=== PATIENT | female | born 1950 | race African-American/Black ===

== ENCOUNTER 2019-10-18 14:06 | Inpatient (IN) | payer MEDICARE, MEDICAID ==
[~2019-10-18] VITALS: Ht 157.5 cm; Wt 89.8 kg
[2019-10-18 15:44] LABS: HEMATOCRIT. 49.6 % (36.0-48.0); HEMOGLOBIN. 16.4 g/dL (12.0-16.0); MEAN CORPUSCULAR HEMOGLOBIN 29.9 pg (28.0-32.0); MEAN CORPUSCULAR VOLUME 90.4 fL (81.0-99.0); MEAN PLATELET VOLUME 8.8 fl (7.4-10.4); PLATELET 205 x1000/uL (130-400); RED BLOOD CELL COUNT 5.49 mill/uL (4.2-5.4); RED CELL DISTRIBUTION WIDTH 13.5 % (11.6-14.6)
[2019-10-18 15:48] LABS: CHLORIDE 110 mEq/L (98-107)
[2019-10-18 15:53] LABS: ETHANOL BLOOD < 10 mg/dL
[2019-10-18 15:57] LABS: CREATINE KINASE 604 IU/L (26-192)
[2019-10-18] MEDS ORDERED: PIPERACILLIN/TAZ 3.375G PREMIX 50 ML IV ONE (16:30)
[2019-10-18] MEDS ORDERED: VANCOMYCIN 1 G PREMIX 200 ML IV ONE (16:30)
[2019-10-18] MEDS ORDERED: SODIUM CHLORIDE 0.9% 1000ML BAG (SEPSIS BOLUS) IV ONE (16:30)
[2019-10-18] MEDS ORDERED: ASPIRIN 81MG TABLET PO ONE (16:30)
[2019-10-18 17:29] LABS: PLATELET ESTIMATE NORMAL
[2019-10-18] MEDS ORDERED: ACETAMINOPHEN 325MG TABLET PO PRN (18:00)
[2019-10-18] MEDS ORDERED: IPRATROPIUM/ALBUTEROL 0.5-3(2.5)MG/3ML NEB NEB PRN (18:00)
[2019-10-18] MEDS ORDERED: ONDANSETRON HCL 4MG/2ML INJ IV PRN (18:00)
[2019-10-18] MEDS ORDERED: CLONIDINE 0.1MG TABLET PO PRN (18:00)
[2019-10-18] MEDS ORDERED: TRAMADOL 50MG TABLET PO PRN (18:00)
[2019-10-18] MEDS ORDERED: GUAIFENESIN 200MG/10ML SUGAR FREE UDC PO PRN (18:00)
[2019-10-18] MEDS ORDERED: NITROGLYCERIN 0.4MG TABLET SL SL PRN (18:00)
[2019-10-18] MEDS ORDERED: MAGNESIUM/ALUMINUM HYDROXIDE/SIMETHICONE 30ML UDC PO PRN (18:00)
[2019-10-18] MEDS ORDERED: ZOLPIDEM TARTRATE 5MG TABLET PO PRN (18:00)
[2019-10-18] MEDS ORDERED: DOCUSATE SODIUM 100MG CAPSULE PO PRN (18:00)
[2019-10-18] MEDS ORDERED: AZITHROMYCIN 500 MG in DEXT 5% WATER 250 ML IV SCH (18:00)
[2019-10-18 19:57] LABS: T4 FREE 1.19 ng/dL (0.76-1.46)
[2019-10-18 20:06] LABS: FOLIC ACID (FOLATE) SERUM 9.6 ng/mL (>5.38)
[2019-10-18 23:59] VITALS: BP 166/103
[2019-10-19] VITALS (7 sets, daily range): BP systolic 112–166; BP diastolic 65–103
[2019-10-19] MEDS ORDERED: LISI-604 PO (00:32)
[2019-10-19 01:18] LABS: CREATINE KINASE MB FRACTION 3.2 ng/mL (0.5-3.6)
[2019-10-19] MEDS: DILTIAZEM HCL 60MG TABLET PO SCH ×5 (01:21→23:39)
[2019-10-19] MEDS: ASCORBIC ACID 500 MG TABLET PO SCH ×3 (01:21→21:19)
[2019-10-19] MEDS: CEFTRIAXONE 1 G PREMIX 50 ML IV SCH (01:21)
[2019-10-19] MEDS: AZITHROMYCIN 500 MG in DEXT 5% WATER 250 ML IV SCH (03:04)
[2019-10-19 06:43] LABS: CREATINE KINASE MB FRACTION 2.3 ng/mL (0.5-3.6)
[2019-10-19] MEDS ORDERED: CEFTRIAXONE 1 G PREMIX 50 ML IV SCH (09:00)
[2019-10-19] MEDS: ZINC SULFATE 220 MG ( 50 ) CAPSULE PO SCH (09:34)
[2019-10-19] MEDS: GUAIFENESIN/DM 600MG/30MG ER TAB 12HR PO SCH ×2 (09:34→21:18)
[2019-10-19] MEDS: FAMOTIDINE 40MG TABLET PO SCH ×2 (09:34→21:19)
[2019-10-19] MEDS: ASPIRIN 325MG EC TABLET PO SCH (09:35)
[2019-10-19] MEDS: ENOXAPARIN 40MG/0.4ML SYR SUBCUT SCH (11:42)
[2019-10-20 04:00] VITALS: BP 135/70
[2019-10-20] MEDS: DILTIAZEM HCL 60MG TABLET PO SCH ×3 (05:07→17:18)
[2019-10-20] MEDS: AZITHROMYCIN 500 MG in DEXT 5% WATER 250 ML IV SCH (08:54)
[2019-10-20] MEDS: ASPIRIN 325MG EC TABLET PO SCH (08:55)
[2019-10-20] MEDS: ZINC SULFATE 220 MG ( 50 ) CAPSULE PO SCH (08:55)
[2019-10-20] MEDS: FAMOTIDINE 40MG TABLET PO SCH ×2 (08:55→21:46)
[2019-10-20] MEDS: ASCORBIC ACID 500 MG TABLET PO SCH ×2 (08:55→21:46)
[2019-10-20] MEDS: ENOXAPARIN 40MG/0.4ML SYR SUBCUT SCH (08:56)
[2019-10-20] MEDS: GUAIFENESIN/DM 600MG/30MG ER TAB 12HR PO SCH (09:00)
[2019-10-20] MEDS: CEFTRIAXONE 1 G PREMIX 50 ML IV SCH (09:07)
[2019-10-20] MEDS: CLOPIDOGREL 75MG TABLET PO SCH (13:50)
[2019-10-20] MEDS ORDERED: IOHEXOL-350 100 ML BOTTLE ONE (18:03)
[2019-10-20] MEDS ORDERED: ATORVASTATIN CALCIUM 10MG TABLET PO SCH (21:00)
[2019-10-21] VITALS: BP 140/85
[2019-10-21] MEDS: GUAIFENESIN/DM 600MG/30MG ER TAB 12HR PO SCH ×2 (00:11→09:12)
[2019-10-21] MEDS: DILTIAZEM HCL 60MG TABLET PO SCH ×3 (00:17→12:52)
[2019-10-21 08:00] VITALS: BP 116/66
[2019-10-21] MEDS: AZITHROMYCIN 500 MG in DEXT 5% WATER 250 ML IV SCH (08:48)
[2019-10-21] MEDS: CLOPIDOGREL 75MG TABLET PO SCH (09:13)
[2019-10-21] MEDS: ZINC SULFATE 220 MG ( 50 ) CAPSULE PO SCH (09:13)
[2019-10-21] MEDS: FAMOTIDINE 40MG TABLET PO SCH (09:13)
[2019-10-21] MEDS: ASCORBIC ACID 500 MG TABLET PO SCH (09:14)
[2019-10-21] MEDS: ENOXAPARIN 40MG/0.4ML SYR SUBCUT SCH (09:33)
[2019-10-21] MEDS: CEFTRIAXONE 1 G PREMIX 50 ML IV SCH (09:33)
[2019-10-21 12:00] VITALS: BP 156/95
[2019-10-21 12:19] VITALS: BP 116/66
[2019-10-21] MEDS ORDERED: CYANOCOBALAMIN 1000MCG/ML VIAL IM SCH (14:00)
[2019-11-03] MEDS ORDERED: CYANOCOBALAMIN 1000MCG/ML VIAL IM SCH (09:00)
== END 2019-10-21 16:59 | DRG 871 ==
LOC: ER 14:06 → 7WST 17:16 → EDBEDREQSVC 17:24 → EDBEDREQ 17:24 → SUPCPDRO 17:51 → ENRESERV 21:16
PROVIDERS: ADMIT Internal Medicine; ATTEND Internal Medicine
DX: A41.9 Sepsis, unspecified organism (principal); J69.0 Pneumonitis due to inhalation of food and vomit; J96.00 Acute respiratory failure, unspecified whether with hypoxia or hypercapnia; G92 Toxic encephalopathy; I63.81 Other cerebral infarction due to occlusion or stenosis of small artery; G82.50 Quadriplegia, unspecified; M62.82 Rhabdomyolysis; R47.01 Aphasia; I10 Essential (primary) hypertension; E11.9 Type 2 diabetes mellitus without complications; E53.8 Deficiency of other specified B group vitamins; E61.1 Iron deficiency; E78.00 Pure hypercholesterolemia, unspecified; R13.10 Dysphagia, unspecified; Z60.2 Problems related to living alone; R26.89 Other abnormalities of gait and mobility; I65.1 Occlusion and stenosis of basilar artery; Z82.49 Family history of ischemic heart disease and other diseases of the circulatory system; Z86.79 Personal history of other diseases of the circulatory system
CPT/HCPCS: 36415; 70496; 70544; 70551; 71045; 80053; 80061; 80320; 82550; 82553; 82607; 82746; 83036; 83540; 83550; 83605; 84439; 84443; 84484; 85025; 92523; 92610; 93005; 93306; 93880; 93970; 94640; 96361; 96365; 96372; 97116; 97162; 97166; 97530; 97535; 99291; J0456; J0696; J1650; J2543; J3370; J7030; J7060; Q9967; G0480

== ENCOUNTER 2019-10-21 16:55 | Inpatient (IN) | payer MEDICARE, MEDICAID ==
[~2019-10-21] VITALS: Ht 144.8 cm; Wt 92.1 kg
[2019-10-21 16:55] VITALS: BP 121/70
[~2019-10-21 16:55] MED LIST: LISI-604 PO
[2019-10-21] MEDS ORDERED: MAGNESIUM/ALUMINUM HYDROXIDE/SIMETHICONE 30ML UDC PO PRN (18:15)
[2019-10-21] MEDS ORDERED: NITROGLYCERIN 0.4MG TABLET SL SL PRN (18:15)
[2019-10-21] MEDS ORDERED: GUAIFENESIN 200MG/10ML SUGAR FREE UDC PO PRN (18:15)
[2019-10-21] MEDS ORDERED: ACETAMINOPHEN 325MG TABLET PO PRN (18:15)
[2019-10-21] MEDS ORDERED: TRAMADOL 50MG TABLET PO PRN (18:15)
[2019-10-21] MEDS ORDERED: IPRATROPIUM/ALBUTEROL 0.5-3(2.5)MG/3ML NEB HHN PRN (18:15)
[2019-10-21 20:00] VITALS: BP_SYST 174; BP_SYST 176; BP_DIAS 86; BP_DIAS 99
[2019-10-21] MEDS: CLONIDINE 0.1MG TABLET PO PRN (20:24)
[2019-10-21] MEDS: GUAIFENESIN/DM 600MG/30MG ER TAB 12HR PO SCH ×2 (21:00→21:28)
[2019-10-21] MEDS: ASCORBIC ACID 500 MG TABLET PO SCH (21:28)
[2019-10-21] MEDS: ATORVASTATIN CALCIUM 10MG TABLET PO SCH (21:28)
[2019-10-21] MEDS: FAMOTIDINE 40MG TABLET PO SCH (21:28)
[2019-10-22] MEDS: DILTIAZEM HCL 60MG TABLET PO SCH ×5 (00:59→23:38)
[2019-10-22 07:54] LABS: BASOPHILS % 0.7 % (0.0-2.0); EOSINOPHILS % 4.6 % (0.0-5.0); HEMATOCRIT. 47.6 % (36.0-48.0); HEMOGLOBIN. 15.4 g/dL (12.0-16.0); LYMPHOCYTES % 38.4 % (20.0-50.0); MEAN CORPUSCULAR HEMOGLOBIN 29.6 pg (28.0-32.0); MEAN CORPUSCULAR VOLUME 91.5 fL (81.0-99.0); MEAN PLATELET VOLUME 9.4 fl (7.4-10.4); NEUTROPHILS % 48.3 % (40.0-76.0); PLATELET 219 x1000/uL (130-400); RED BLOOD CELL COUNT 5.21 mill/uL (4.2-5.4); RED CELL DISTRIBUTION WIDTH 13.8 % (11.6-14.6)
[2019-10-22 07:56] LABS: CHLORIDE 114 mEq/L (98-107)
[2019-10-22] MEDS ORDERED: AZITHROMYCIN 500 MG in DEXT 5% WATER 250 ML IV SCH ×2 (08:00→21:00)
[2019-10-22 08:06] VITALS: BP 132/76
[2019-10-22] MEDS: ASCORBIC ACID 500 MG TABLET PO SCH ×2 (08:28→21:07)
[2019-10-22] MEDS: DOCUSATE SODIUM 100MG CAPSULE PO SCH ×2 (08:28→17:11)
[2019-10-22] MEDS: CLOPIDOGREL 75MG TABLET PO SCH (08:28)
[2019-10-22] MEDS: GUAIFENESIN/DM 600MG/30MG ER TAB 12HR PO SCH ×2 (08:28→21:00)
[2019-10-22] MEDS: ZINC SULFATE 220 MG ( 50 ) CAPSULE PO SCH (08:28)
[2019-10-22] MEDS: ENOXAPARIN 40MG/0.4ML SYR SUBCUT SCH (08:29)
[2019-10-22] MEDS: CYANOCOBALAMIN 1000MCG/ML VIAL SUBCUT SCH (08:29)
[2019-10-22] MEDS: FAMOTIDINE 40MG TABLET PO SCH ×2 (08:29→21:07)
[2019-10-22] MEDS ORDERED: CEFTRIAXONE 1 G PREMIX 50 ML IV SCH ×2 (09:00→22:00)
[2019-10-22] MEDS ORDERED: CLOPIDOGREL 75MG TABLET PO SCH (09:00)
[2019-10-22] MEDS ORDERED: POTASSIUM CHLORIDE 20MEQ TABLET SR PO NR (10:15)
[2019-10-22 20:00] VITALS: BP 158/98
[2019-10-22] MEDS: ATORVASTATIN CALCIUM 10MG TABLET PO SCH (21:07)
[2019-10-22 21:31] LABS: CLARITY URINE CLEAR (CLEAR); COLOR URINE YELLOW (YELLOW); KETONES URINE NEGATIVE (NEGATIVE); LEUKOCYTE ESTERASE URINE TRACE (NEGATIVE); NITRITE URINE NEGATIVE (NEGATIVE); OCCULT BLOOD URINE NEGATIVE (NEGATIVE); PROTEIN URINE NEGATIVE (NEGATIVE); SPECIFIC GRAVITY URINE 1.018 (1.005-1.030); UROBILINOGEN URINE 0.2 E.U./dL (0.2-1.0)
[2019-10-23] MEDS: ZOLPIDEM TARTRATE 5MG TABLET PO PRN ×2 (00:46→21:02)
[2019-10-23] MEDS: DILTIAZEM HCL 60MG TABLET PO SCH ×4 (06:02→21:02)
[2019-10-23 07:49] VITALS: BP 128/85
[2019-10-23] MEDS: GUAIFENESIN/DM 600MG/30MG ER TAB 12HR PO SCH ×2 (08:46→21:01)
[2019-10-23] MEDS: ASCORBIC ACID 500 MG TABLET PO SCH ×2 (08:46→21:02)
[2019-10-23] MEDS: DOCUSATE SODIUM 100MG CAPSULE PO SCH ×2 (08:46→17:00)
[2019-10-23] MEDS: ZINC SULFATE 220 MG ( 50 ) CAPSULE PO SCH (08:46)
[2019-10-23] MEDS: FAMOTIDINE 40MG TABLET PO SCH ×2 (08:46→21:02)
[2019-10-23] MEDS: CYANOCOBALAMIN 1000MCG/ML VIAL SUBCUT SCH (08:46)
[2019-10-23] MEDS: CLOPIDOGREL 75MG TABLET PO SCH (08:46)
[2019-10-23] MEDS: ENOXAPARIN 40MG/0.4ML SYR SUBCUT SCH (08:47)
[2019-10-23 10:30] LABS: BASOPHILS % 0.7 % (0.0-2.0); EOSINOPHILS % 4.5 % (0.0-5.0); HEMOGLOBIN. 14.9 g/dL (12.0-16.0); LYMPHOCYTES % 25.4 % (20.0-50.0); MEAN CORPUSCULAR HEMOGLOBIN 29.6 pg (28.0-32.0); MEAN CORPUSCULAR VOLUME 91.3 fL (81.0-99.0); MONOCYTES % 8.1 % (2.0-8.0); NEUTROPHILS % 61.3 % (40.0-76.0); PLATELET 225 x1000/uL (130-400); RED BLOOD CELL COUNT 5.03 mill/uL (4.2-5.4); RED CELL DISTRIBUTION WIDTH 13.5 % (11.6-14.6)
[2019-10-23 10:40] LABS: CHLORIDE 113 mEq/L (98-107)
[2019-10-23 10:50] LABS: CREATINE KINASE 40 IU/L (26-192)
[2019-10-23] MEDS: LACTULOSE 20G/30ML UDC PO SCH ×2 (13:53→21:24)
[2019-10-23] MEDS: AZITHROMYCIN 500 MG TABLET PO SCH (17:22)
[2019-10-23 20:00] VITALS: BP 167/107
[2019-10-23] MEDS: ATORVASTATIN CALCIUM 10MG TABLET PO SCH (21:01)
[2019-10-24] MEDS: LACTULOSE 20G/30ML UDC PO SCH ×2 (06:04→13:02)
[2019-10-24] MEDS: DILTIAZEM HCL 60MG TABLET PO SCH ×3 (06:05→17:00)
[2019-10-24 08:00] VITALS: BP 132/81
[2019-10-24] MEDS: ASCORBIC ACID 500 MG TABLET PO SCH ×2 (08:36→21:35)
[2019-10-24] MEDS: GUAIFENESIN/DM 600MG/30MG ER TAB 12HR PO SCH ×2 (08:36→21:34)
[2019-10-24] MEDS: CLOPIDOGREL 75MG TABLET PO SCH (08:36)
[2019-10-24] MEDS: ZINC SULFATE 220 MG ( 50 ) CAPSULE PO SCH (08:36)
[2019-10-24] MEDS: DOCUSATE SODIUM 100MG CAPSULE PO SCH ×2 (08:36→16:42)
[2019-10-24] MEDS: FAMOTIDINE 40MG TABLET PO SCH ×2 (08:36→21:35)
[2019-10-24] MEDS: CYANOCOBALAMIN 1000MCG/ML VIAL SUBCUT SCH (08:36)
[2019-10-24] MEDS: ENOXAPARIN 40MG/0.4ML SYR SUBCUT SCH (08:38)
[2019-10-24 10:59] VITALS: BP 135/82
[2019-10-24 16:38] VITALS: BP 140/63
[2019-10-24] MEDS: AZITHROMYCIN 500 MG TABLET PO SCH (17:00)
[2019-10-24 20:00] VITALS: BP 137/87
[2019-10-24] MEDS: ATORVASTATIN CALCIUM 10MG TABLET PO SCH (21:35)
[2019-10-25] MEDS: DILTIAZEM HCL 60MG TABLET PO SCH ×4 (00:02→17:00)
[2019-10-25 08:00] VITALS: BP 140/82
[2019-10-25] MEDS: FAMOTIDINE 40MG TABLET PO SCH ×2 (08:45→21:34)
[2019-10-25] MEDS: CLOPIDOGREL 75MG TABLET PO SCH (08:46)
[2019-10-25] MEDS: GUAIFENESIN/DM 600MG/30MG ER TAB 12HR PO SCH ×2 (08:46→21:34)
[2019-10-25] MEDS: ASCORBIC ACID 500 MG TABLET PO SCH ×2 (08:46→21:34)
[2019-10-25] MEDS: ZINC SULFATE 220 MG ( 50 ) CAPSULE PO SCH (08:46)
[2019-10-25] MEDS: ENOXAPARIN 40MG/0.4ML SYR SUBCUT SCH (08:47)
[2019-10-25] MEDS: CYANOCOBALAMIN 1000MCG/ML VIAL SUBCUT SCH (08:47)
[2019-10-25] MEDS: DOCUSATE SODIUM 100MG CAPSULE PO SCH ×2 (08:52→17:01)
[2019-10-25 13:36] VITALS: BP 147/82
[2019-10-25] MEDS: AZITHROMYCIN 500 MG TABLET PO SCH (17:00)
[2019-10-25 20:00] VITALS: BP 137/78
[2019-10-25] MEDS: ATORVASTATIN CALCIUM 10MG TABLET PO SCH (21:34)
[2019-10-25] MEDS: ZOLPIDEM TARTRATE 5MG TABLET PO PRN (21:34)
[2019-10-26] MEDS: DILTIAZEM HCL 60MG TABLET PO SCH ×5 (00:26→17:14)
[2019-10-26 06:32] LABS: BASOPHILS % 0.4 % (0.0-2.0); EOSINOPHILS % 4.3 % (0.0-5.0); HEMATOCRIT. 47.2 % (36.0-48.0); HEMOGLOBIN. 15.8 g/dL (12.0-16.0); LYMPHOCYTES % 35.8 % (20.0-50.0); MEAN CORPUSCULAR HEMOGLOBIN 30.1 pg (28.0-32.0); MEAN CORPUSCULAR VOLUME 90.1 fL (81.0-99.0); MEAN PLATELET VOLUME 8.8 fl (7.4-10.4); MONOCYTES % 10.1 % (2.0-8.0); NEUTROPHILS % 49.4 % (40.0-76.0); PLATELET 267 x1000/uL (130-400); RED BLOOD CELL COUNT 5.23 mill/uL (4.2-5.4); RED CELL DISTRIBUTION WIDTH 13.2 % (11.6-14.6)
[2019-10-26 06:48] LABS: CHLORIDE 115 mEq/L (98-107)
[2019-10-26 08:01] VITALS: BP 134/83
[2019-10-26] MEDS: ENOXAPARIN 40MG/0.4ML SYR SUBCUT SCH (08:23)
[2019-10-26] MEDS: GUAIFENESIN/DM 600MG/30MG ER TAB 12HR PO SCH ×2 (08:24→21:14)
[2019-10-26] MEDS: CLOPIDOGREL 75MG TABLET PO SCH (08:24)
[2019-10-26] MEDS: ASCORBIC ACID 500 MG TABLET PO SCH ×2 (08:24→21:14)
[2019-10-26] MEDS: ZINC SULFATE 220 MG ( 50 ) CAPSULE PO SCH (08:24)
[2019-10-26] MEDS: DOCUSATE SODIUM 100MG CAPSULE PO SCH ×2 (08:24→17:13)
[2019-10-26] MEDS: CYANOCOBALAMIN 1000MCG/ML VIAL SUBCUT SCH (08:24)
[2019-10-26 08:30] VITALS: BP 134/83
[2019-10-26] MEDS: FAMOTIDINE 20MG TABLET PO SCH ×2 (08:51→21:14)
[2019-10-26 11:32] VITALS: BP 101/74
[2019-10-26 16:58] VITALS: BP 141/87
[2019-10-26] MEDS: AZITHROMYCIN 500 MG TABLET PO SCH (17:13)
[2019-10-26] MEDS ORDERED: IPRATROPIUM/ALBUTEROL 0.5-3(2.5)MG/3ML NEB HHN PRN (18:30)
[2019-10-26 20:00] VITALS: BP 142/84
[2019-10-26] MEDS: ZOLPIDEM TARTRATE 5MG TABLET PO PRN (21:14)
[2019-10-26] MEDS: ATORVASTATIN CALCIUM 10MG TABLET PO SCH (21:14)
[2019-10-26] MEDS: ENOXAPARIN 30MG/0.3ML SYR SUBCUT SCH (21:14)
[2019-10-27] MEDS: IPRATROPIUM/ALBUTEROL 0.5-3(2.5)MG/3ML NEB HHN SCH ×4 (02:09→20:08)
[2019-10-27 06:11] LABS: 25-HYDROXY VITAMIN D3 5.1 ng/mL (.)
[2019-10-27] MEDS: DILTIAZEM HCL 60MG TABLET PO SCH ×5 (06:22→23:36)
[2019-10-27 07:42] LABS: CHLORIDE 115 mEq/L (98-107)
[2019-10-27 08:00] VITALS: BP 120/76
[2019-10-27] MEDS: ENOXAPARIN 30MG/0.3ML SYR SUBCUT SCH ×3 (09:06→21:00)
[2019-10-27] MEDS: ASCORBIC ACID 500 MG TABLET PO SCH ×3 (09:06→21:00)
[2019-10-27] MEDS: DOCUSATE SODIUM 100MG CAPSULE PO SCH ×2 (09:06→16:40)
[2019-10-27] MEDS: CYANOCOBALAMIN 1000MCG/ML VIAL SUBCUT SCH (09:06)
[2019-10-27] MEDS: GUAIFENESIN/DM 600MG/30MG ER TAB 12HR PO SCH ×3 (09:06→21:00)
[2019-10-27] MEDS: ZINC SULFATE 220 MG ( 50 ) CAPSULE PO SCH (09:10)
[2019-10-27] MEDS: CLOPIDOGREL 75MG TABLET PO SCH (09:10)
[2019-10-27] MEDS: FAMOTIDINE 20MG TABLET PO SCH ×3 (09:25→21:00)
[2019-10-27] MEDS: CLONIDINE 0.1MG TABLET PO PRN (13:05)
[2019-10-27] MEDS: AZITHROMYCIN 500 MG TABLET PO SCH (16:39)
[2019-10-27] MEDS ORDERED: ERGOCALCIFEROL 50000UNITS CAPSULE PO SCH (17:00)
[2019-10-27] MEDS ORDERED: TRAMADOL 50MG TABLET PO PRN (19:45)
[2019-10-27 20:00] VITALS: BP 120/70
[2019-10-27] MEDS: BUDESONIDE 0.5MG/2ML NEB HHN SCH (20:08)
[2019-10-27] MEDS: ATORVASTATIN CALCIUM 10MG TABLET PO SCH ×2 (20:21→21:00)
[2019-10-27] MEDS: LACTULOSE 20G/30ML UDC PO SCH (21:39)
[2019-10-27] MEDS: ZOLPIDEM TARTRATE 5MG TABLET PO PRN (23:36)
[2019-10-28] MEDS: DILTIAZEM HCL 60MG TABLET PO SCH ×4 (06:08→23:47)
[2019-10-28] MEDS: LACTULOSE 20G/30ML UDC PO SCH ×3 (06:08→20:42)
[2019-10-28 07:15] VITALS: BP 128/68
[2019-10-28] MEDS: BUDESONIDE 0.5MG/2ML NEB HHN SCH ×2 (07:22→21:15)
[2019-10-28] MEDS: IPRATROPIUM/ALBUTEROL 0.5-3(2.5)MG/3ML NEB HHN SCH ×4 (07:22→21:15)
[2019-10-28] MEDS: DOCUSATE SODIUM 100MG CAPSULE PO SCH ×2 (09:00→16:34)
[2019-10-28] MEDS: GUAIFENESIN/DM 600MG/30MG ER TAB 12HR PO SCH ×2 (09:04→20:41)
[2019-10-28] MEDS: ZINC SULFATE 220 MG ( 50 ) CAPSULE PO SCH (09:04)
[2019-10-28] MEDS: FAMOTIDINE 20MG TABLET PO SCH ×2 (09:04→20:41)
[2019-10-28] MEDS: ENOXAPARIN 30MG/0.3ML SYR SUBCUT SCH ×2 (09:04→20:42)
[2019-10-28] MEDS: CLOPIDOGREL 75MG TABLET PO SCH (09:04)
[2019-10-28] MEDS: ASCORBIC ACID 500 MG TABLET PO SCH ×2 (09:04→20:41)
[2019-10-28 12:50] VITALS: BP 119/78
[2019-10-28] MEDS: AZITHROMYCIN 500 MG TABLET PO SCH (16:37)
[2019-10-28 20:00] VITALS: BP 135/82
[2019-10-28] MEDS: ATORVASTATIN CALCIUM 10MG TABLET PO SCH (20:41)
[2019-10-28] MEDS: ZOLPIDEM TARTRATE 5MG TABLET PO PRN (23:47)
[2019-10-29] MEDS: IPRATROPIUM/ALBUTEROL 0.5-3(2.5)MG/3ML NEB HHN SCH ×3 (00:50→21:00)
[2019-10-29] MEDS: LACTULOSE 20G/30ML UDC PO SCH ×4 (06:37→21:36)
[2019-10-29] MEDS: DILTIAZEM HCL 60MG TABLET PO SCH ×4 (06:37→23:01)
[2019-10-29 07:53] VITALS: BP_SYST 118; BP_SYST 132; BP_DIAS 46; BP_DIAS 76
[2019-10-29] MEDS: ZINC SULFATE 220 MG ( 50 ) CAPSULE PO SCH (08:38)
[2019-10-29] MEDS: CLOPIDOGREL 75MG TABLET PO SCH (08:38)
[2019-10-29] MEDS: ASCORBIC ACID 500 MG TABLET PO SCH ×2 (08:38→20:43)
[2019-10-29] MEDS: DOCUSATE SODIUM 100MG CAPSULE PO SCH ×2 (08:38→17:00)
[2019-10-29] MEDS: ENOXAPARIN 30MG/0.3ML SYR SUBCUT SCH ×2 (08:38→20:42)
[2019-10-29] MEDS: GUAIFENESIN/DM 600MG/30MG ER TAB 12HR PO SCH ×2 (08:38→20:42)
[2019-10-29] MEDS: FAMOTIDINE 20MG TABLET PO SCH ×2 (08:38→20:42)
[2019-10-29 12:21] VITALS: BP 121/84
[2019-10-29 16:44] VITALS: BP 148/84
[2019-10-29] MEDS: AZITHROMYCIN 500 MG TABLET PO SCH (17:03)
[2019-10-29 20:00] VITALS: BP 140/83
[2019-10-29] MEDS: ATORVASTATIN CALCIUM 10MG TABLET PO SCH (20:42)
[2019-10-29] MEDS: BUDESONIDE 0.5MG/2ML NEB HHN SCH (21:02)
[2019-10-29] MEDS: ZOLPIDEM TARTRATE 5MG TABLET PO PRN (23:01)
[2019-10-30] MEDS: IPRATROPIUM/ALBUTEROL 0.5-3(2.5)MG/3ML NEB HHN SCH ×4 (02:13→20:17)
[2019-10-30] MEDS: LACTULOSE 20G/30ML UDC PO SCH ×2 (06:22→13:11)
[2019-10-30] MEDS: DILTIAZEM HCL 60MG TABLET PO SCH ×3 (06:23→17:22)
[2019-10-30 07:33] LABS: EOSINOPHILS % 4.9 % (0.0-5.0); HEMATOCRIT. 48.6 % (36.0-48.0); HEMOGLOBIN. 16.2 g/dL (12.0-16.0); LYMPHOCYTES % 37.9 % (20.0-50.0); MEAN CORPUSCULAR HEMOGLOBIN 30.3 pg (28.0-32.0); MEAN CORPUSCULAR VOLUME 90.7 fL (81.0-99.0); MONOCYTES % 13.4 % (2.0-8.0); NEUTROPHILS % 42.8 % (40.0-76.0); PLATELET 293 x1000/uL (130-400); RED BLOOD CELL COUNT 5.36 mill/uL (4.2-5.4); RED CELL DISTRIBUTION WIDTH 13.3 % (11.6-14.6)
[2019-10-30 07:46] VITALS: BP 114/63
[2019-10-30 07:48] LABS: CHLORIDE 114 mEq/L (98-107)
[2019-10-30] MEDS: BUDESONIDE 0.5MG/2ML NEB HHN SCH ×2 (08:00→08:40)
[2019-10-30] MEDS: DOCUSATE SODIUM 100MG CAPSULE PO SCH ×2 (09:00→16:07)
[2019-10-30] MEDS: ENOXAPARIN 30MG/0.3ML SYR SUBCUT SCH ×2 (09:07→21:55)
[2019-10-30] MEDS: GUAIFENESIN/DM 600MG/30MG ER TAB 12HR PO SCH ×2 (09:08→21:54)
[2019-10-30] MEDS: CLOPIDOGREL 75MG TABLET PO SCH (09:08)
[2019-10-30] MEDS: ZINC SULFATE 220 MG ( 50 ) CAPSULE PO SCH (09:08)
[2019-10-30] MEDS: ASCORBIC ACID 500 MG TABLET PO SCH ×2 (09:08→21:54)
[2019-10-30] MEDS: FAMOTIDINE 20MG TABLET PO SCH ×2 (09:08→21:54)
[2019-10-30 11:19] VITALS: BP 117/64
[2019-10-30 17:16] VITALS: BP 125/64
[2019-10-30] MEDS: AZITHROMYCIN 500 MG TABLET PO SCH (17:22)
[2019-10-30 20:00] VITALS: BP 129/79
[2019-10-30] MEDS: ZOLPIDEM TARTRATE 5MG TABLET PO PRN (21:54)
[2019-10-30] MEDS: ATORVASTATIN CALCIUM 10MG TABLET PO SCH (21:54)
[2019-10-31] MEDS: IPRATROPIUM/ALBUTEROL 0.5-3(2.5)MG/3ML NEB HHN SCH ×5 (01:41→20:09)
[2019-10-31] MEDS: DILTIAZEM HCL 60MG TABLET PO SCH ×4 (05:56→17:05)
[2019-10-31 08:24] VITALS: BP 140/92
[2019-10-31] MEDS: FAMOTIDINE 20MG TABLET PO SCH ×2 (09:17→21:43)
[2019-10-31] MEDS: CLOPIDOGREL 75MG TABLET PO SCH (09:17)
[2019-10-31] MEDS: ENOXAPARIN 30MG/0.3ML SYR SUBCUT SCH ×2 (09:17→21:44)
[2019-10-31] MEDS: ASCORBIC ACID 500 MG TABLET PO SCH ×2 (09:18→21:44)
[2019-10-31] MEDS: ZINC SULFATE 220 MG ( 50 ) CAPSULE PO SCH (09:18)
[2019-10-31] MEDS: GUAIFENESIN/DM 600MG/30MG ER TAB 12HR PO SCH ×2 (09:18→21:43)
[2019-10-31] MEDS: DOCUSATE SODIUM 100MG CAPSULE PO SCH ×2 (09:18→16:18)
[2019-10-31 20:00] VITALS: BP 131/81
[2019-10-31] MEDS: ATORVASTATIN CALCIUM 10MG TABLET PO SCH (21:43)
[2019-10-31] MEDS: ZOLPIDEM TARTRATE 5MG TABLET PO PRN (21:43)
[2019-11-01] MEDS: DILTIAZEM HCL 60MG TABLET PO SCH ×4 (05:27→17:22)
[2019-11-01 07:56] VITALS: BP 134/68
[2019-11-01 08:00] VITALS: BP 134/68
[2019-11-01] MEDS: IPRATROPIUM/ALBUTEROL 0.5-3(2.5)MG/3ML NEB HHN SCH ×4 (08:09→20:56)
[2019-11-01] MEDS: ASCORBIC ACID 500 MG TABLET PO SCH ×2 (08:57→22:02)
[2019-11-01] MEDS: CLOPIDOGREL 75MG TABLET PO SCH (08:57)
[2019-11-01] MEDS: DOCUSATE SODIUM 100MG CAPSULE PO SCH ×2 (08:57→17:00)
[2019-11-01] MEDS: ZINC SULFATE 220 MG ( 50 ) CAPSULE PO SCH (08:57)
[2019-11-01] MEDS: GUAIFENESIN/DM 600MG/30MG ER TAB 12HR PO SCH ×2 (08:57→22:01)
[2019-11-01] MEDS: FAMOTIDINE 20MG TABLET PO SCH ×2 (08:57→22:01)
[2019-11-01] MEDS: ENOXAPARIN 30MG/0.3ML SYR SUBCUT SCH ×2 (08:57→22:01)
[2019-11-01 11:29] LABS: HEMATOCRIT. 48.7 % (36.0-48.0); HEMOGLOBIN. 16.4 g/dL (12.0-16.0); MEAN CORPUSCULAR HEMOGLOBIN 30.7 pg (28.0-32.0); MEAN PLATELET VOLUME 9.1 fl (7.4-10.4); PLATELET 288 x1000/uL (130-400); RED BLOOD CELL COUNT 5.35 mill/uL (4.2-5.4); RED CELL DISTRIBUTION WIDTH 13.6 % (11.6-14.6)
[2019-11-01 12:22] LABS: CHLORIDE 116 mEq/L (98-107)
[2019-11-01 13:29] LABS: ATYPICAL LYMPHOCYTES 1; PLATELET ESTIMATE NORMAL
[2019-11-01] MEDS ORDERED: BENZONATATE 100MG CAPSULE PO PRN (15:15)
[2019-11-01 20:00] VITALS: BP 129/74
[2019-11-01] MEDS: LACTULOSE 20G/30ML UDC PO SCH (22:00)
[2019-11-01] MEDS: ATORVASTATIN CALCIUM 10MG TABLET PO SCH (22:03)
[2019-11-01] MEDS: ZOLPIDEM TARTRATE 5MG TABLET PO PRN (22:16)
[2019-11-02] MEDS: IPRATROPIUM/ALBUTEROL 0.5-3(2.5)MG/3ML NEB HHN SCH ×2 (02:32→21:07)
[2019-11-02] MEDS: LACTULOSE 20G/30ML UDC PO SCH (05:56)
[2019-11-02] MEDS: DILTIAZEM HCL 60MG TABLET PO SCH ×2 (06:00)
[2019-11-02 08:00] VITALS: BP 143/82
[2019-11-02] MEDS: ENOXAPARIN 30MG/0.3ML SYR SUBCUT SCH ×2 (08:47→22:01)
[2019-11-02] MEDS: ASCORBIC ACID 500 MG TABLET PO SCH ×2 (08:47→22:02)
[2019-11-02] MEDS: CLOPIDOGREL 75MG TABLET PO SCH (08:47)
[2019-11-02] MEDS: GUAIFENESIN/DM 600MG/30MG ER TAB 12HR PO SCH ×2 (08:47→22:06)
[2019-11-02] MEDS: FAMOTIDINE 20MG TABLET PO SCH ×2 (08:47→22:01)
[2019-11-02] MEDS: ZINC SULFATE 220 MG ( 50 ) CAPSULE PO SCH (08:47)
[2019-11-02] MEDS: DOCUSATE SODIUM 100MG CAPSULE PO SCH ×2 (08:48→16:12)
[2019-11-02 13:19] VITALS: BP 154/103
[2019-11-02] MEDS: DILTIAZEM HCL 180MG CAPSULE CD 24HR PO SCH (13:20)
[2019-11-02 18:39] VITALS: BP 140/84
[2019-11-02] MEDS ORDERED: ZOLPIDEM TARTRATE 5MG TABLET PO PRN (19:30)
[2019-11-02 20:00] VITALS: BP 147/92
[2019-11-02] MEDS: ATORVASTATIN CALCIUM 10MG TABLET PO SCH (22:01)
[2019-11-03] MEDS: IPRATROPIUM/ALBUTEROL 0.5-3(2.5)MG/3ML NEB HHN SCH ×2 (01:43→08:12)
[2019-11-03 06:25] LABS: INR 1.1; PARTIAL THROMBOPLASTIN TIME 29.6 sec (23.4-31.0); PROTHROMBIN TIME 10.8 sec (9.6-11.0)
[2019-11-03 06:55] LABS: HEPATITIS B SURFACE ANTIGEN NEGATIVE
[2019-11-03 07:24] LABS: HEPATITIS A AB IGM NEGATIVE (NEGATIVE)
[2019-11-03 07:32] VITALS: BP 125/75
[2019-11-03] MEDS: ZINC SULFATE 220 MG ( 50 ) CAPSULE PO SCH (08:26)
[2019-11-03] MEDS: CLOPIDOGREL 75MG TABLET PO SCH (08:26)
[2019-11-03] MEDS: DILTIAZEM HCL 180MG CAPSULE CD 24HR PO SCH (08:27)
[2019-11-03] MEDS: ENOXAPARIN 30MG/0.3ML SYR SUBCUT SCH (08:27)
[2019-11-03] MEDS: GUAIFENESIN/DM 600MG/30MG ER TAB 12HR PO SCH (08:27)
[2019-11-03] MEDS: FAMOTIDINE 20MG TABLET PO SCH (08:27)
[2019-11-03] MEDS: DOCUSATE SODIUM 100MG CAPSULE PO SCH (08:28)
[2019-11-03] MEDS: ASCORBIC ACID 500 MG TABLET PO SCH (08:28)
[2019-11-03] MEDS ORDERED: CYANOCOBALAMIN 1000MCG/ML VIAL IM SCH (09:00)
[2019-11-03 11:13] VITALS: BP 125/75
[2019-11-03] MEDS ORDERED: NYSTATIN POWDER 15GM TOP SCH (13:00)
== END 2019-11-03 14:04 | disposition home health service (06) | DRG 64 ==
PROVIDERS: ADMIT Physical Medicine & Rehabilitation Spinal Cord Injury Medicine; ATTEND Internal Medicine
DX: I63.9 Cerebral infarction, unspecified (principal); G82.50 Quadriplegia, unspecified; J69.0 Pneumonitis due to inhalation of food and vomit; E44.1 Mild protein-calorie malnutrition; Z68.41 Body mass index [BMI] 40.0-44.9, adult; M62.82 Rhabdomyolysis; E11.9 Type 2 diabetes mellitus without complications; E53.8 Deficiency of other specified B group vitamins; E66.9 Obesity, unspecified; E61.1 Iron deficiency; E78.00 Pure hypercholesterolemia, unspecified; I10 Essential (primary) hypertension; R13.10 Dysphagia, unspecified; R47.01 Aphasia
CPT/HCPCS: 36415; 71045; 80053; 80076; 80307; 81003; 82140; 82306; 82550; 82977; 83615; 83735; 83880; 84100; 84134; 85025; 85384; 86705; 86709; 86803; 87340; 92523; 93970; 94640; 97110; 97116; 97162; 97166; 97530; 97535; C1893; J0456; J0696; J1650; J3420; J7040; J7060; J7620; J7626